=== PATIENT | male | born 1960 | race Caucasian/White ===

== ENCOUNTER → 2018-08-15 | Outpatient (CLI) | payer BC, OTHER ==
--- NOTE | ~2018-08-15 | EXE ---
[facility] [place] [address] STRESS ECHOCARDIOGRAM Name: RENETTAANDREIA Kristofer Room #: REG Nicky#: [id number] Admission: 08/15/18 Attend Phys: Valentin Covington Discharge: Date of : 60 Date of Service: 08/15/18 1554 Report #: [id number] THIS REPORT FOR: //name// APPROVED REPORT Study performed: 08/15/2018 13:09:46 Exam: Stress Echocardiogram Indication: Elevated Calcium Score, HLP Patient Location: Out-Patient Stress Nurse: Cathleen Morrissey RN Room #: Echo lab 2 Status: routine Ht: 5 ft 10 in HR: 41 bpm BP: 114/78 mmHg Rhythm: Bradycardia Medical History Medical History: Hyperlipidemia Allergies: No known drug allergies Cardiac Risk Factors: Hyperlipidemia, FHX of CAD Exercise History: Physically active Procedure The patient underwent an Exercise Stress Test using the Brad Protocol. Blood pressure, heart rate, and EKG were monitored. An Echocardiogram was performed by refinish technician in four stages in quad fashion. At peak stress, four selected images were obtained and placed side by side with resting images for comparison. Stress Test Details Stress Test: Exercise stress testing was performed using a Brad protocol. HR Resting HR: 41 bpm Max Heart Rate (APMHR): 162 bpm Max HR Achieved: 153 bpm Target HR (85% APMHR): 137 bpm % of APMHR: 94 Recovery HR: 77 bpm HR response to stress: Normal HR response to stress BP Resting BP: 114/78 mmHg Max BP: 192/80 mmHg Recovery BP: 132/80 mmHg [facility] [address] [place] [address] STRESS ECHOCARDIOGRAM Name: ANDREIA JACKSON Room #: [id number] Admission: 08/15/18 Attend Phys: Valentin Covington Discharge: Date of : 60 Date of Service: 08/15/18 1554 Report #: [id number] BP response to stress: Normal blood pressure response to stress. ECG Resting ECG: Sinus Rhythm Stress ECG: Sinus Tachycardia Arrhythmia: None Recovery ECG: Sinus Rhythm Clinical Reason for Termination: Maximal effort Exercise duration: 16 min 10 sec Highest Stage Achieved: Stage 6: 5.5 mph at 20% grade. Exercise capacity: 20.3 METs Overall Exercise Capacity for Age: Excellent Stress ECG Conclusion 1.Subjectively negative for ischemia 2.Electrocardiographically negative for ischemia 3. Excellent functional capacity Pre-Stress Echo The resting Echocardiogram showed normal left ventricular contractility with an estimated Ejection Fraction of about >55%. Post-Stress Echo The stress Echocardiogram showed normal left ventricular contractility with an estimated Ejection Fraction of about 65-70%. Clinical Normal augmentation of myocardial wall segments using a 17 segment model. Conclusion Clinical Response: Non-ischemic Exercise Capacity: Superior Stress ECG Response: Non-ischemic 1. Low risk study No prior study available for comparison. <Conclusion> 1. Low risk study <ELECTRONICALLY SIGNED> By: Valentin Harper MD 08/15/18 1554 1554 1554 Valentin Harper MD /INF
== END ==
LOC: CV 11:08
DX: E78.5 Hyperlipidemia, unspecified (principal); R93.1 Abnormal findings on diagnostic imaging of heart and coronary circulation